=== PATIENT | female | born 1955 | race Asian ===

== ENCOUNTER 2018-12-31 21:25 | Emergency (ER) | payer OTHER ==
[~2018-12-31] VITALS: Ht 154.9 cm; Wt 48.0 kg
[2018-12-31 21:35] VITALS: BP 166/95
== END 2018-12-31 22:36 | disposition home or self-care (01) ==
LOC: ED 22:30
DX: G89.11 Acute pain due to trauma (principal); M25.512 Pain in left shoulder; W01.0XXA Fall on same level from slipping, tripping and stumbling without subsequent striking against object, initial encounter; Y93.89 Activity, other specified; Y92.89 Other specified places as the place of occurrence of the external cause; Y99.8 Other external cause status
CPT/HCPCS: 99283